=== PATIENT | female | born 1985 | race Caucasian/White ===

== ENCOUNTER 2017-03-05 11:35 | Emergency (ER) | payer OTHER ==
[2017-03-05 11:41] VITALS: BMI 29.8
--- NOTE | 2017-03-05 11:46 | PDOC ---
History of Present Illness - General Chief Complaint: Vaginal Bleeding Stated Complaint: VAGINAL BLEEDING () Time Seen by Provider: 03/05/17 11:45 - History of Present Illness Initial Comments: 03/05/17 11:47 Ms. Coyne is a 31 yo female with significant past medical history of positive home test 02/28/17 who presents to the emergency department after she experienced spotting this morning. She says she took the home test last week after she began experiencing nausea with foods she normally can eat. She reports that she has 4 other children and that she has never experienced the spotting before during and would like it checked out. Additionally, she reports she has had several weeks of midline lower quadrant pain as well as low back pain over this same period. The patient denies chest pain, shortness of breath, headache and dizziness. Denies fever, chills, nausea, vomit, diarrhea and constipation. Denies dysuria, frequency, urgency and hematuria. Allergies: NKDA Past surgical history: Denies Social history: Denies PMD - Callie Pompa Past History - Past Medical History Allergies/Adverse Reactions: Allergies Allergy/AdvReac Type Severity Reaction Status Date / Time No Known Allergies Allergy Verified 03/05/17 11:41 Home Medications: Ambulatory Orders NK [No Known Home Medication] 03/05/17 Other medical history: PATIENT DENIES MEDICAL HX - Suicide/Smoking/Psychosocial Hx Smoking History: Never smoked Hx Alcohol Use: No Drug/Substance Use Hx: No Review of Systems - Review of Systems Comments:: 03/05/17 11:47 GENERAL/CONSTITUTIONAL: No fever or chills. No weakness. HEAD, EYES, EARS, NOSE AND THROAT: No change in vision. No ear pain or discharge. No sore throat. CARDIOVASCULAR: No chest pain or shortness of breath RESPIRATORY: No cough, wheezing, or hemoptysis. GASTROINTESTINAL: +Nausea with "normal" foods, midline lower abdominal pain. No vomiting, diarrhea or constipation. GENITOURINARY: +Spotting this AM. No dysuria, frequency, or change in urination. MUSCULOSKELETAL: +Several months of lower back pain. No joint or muscle swelling or pain. SKIN: No rash NEUROLOGIC: No headache, vertigo, loss of consciousness, or change in strength/ sensation. ENDOCRINE: No increased thirst. No abnormal weight change HEMATOLOGIC/LYMPHATIC: No anemia, easy bleeding, or history of blood clots. ALLERGIC/IMMUNOLOGIC: No hives or skin allergy. *Physical Exam - Vital Signs Last Vital Signs Temp Pulse Resp BP Pulse Ox 98.2 F 100 H 16 120/66 100 03/05/17 11:38 03/05/17 11:38 03/05/17 11:38 03/05/17 11:38 03/05/17 11:38 - Physical Exam Comments: 03/05/17 11:47 GENERAL: Awake, alert, and fully oriented, in no acute distress HEAD: No signs of trauma, normocephalic, atraumatic EYES: PERRLA, EOMI, sclera anicteric, conjunctiva clear ENT: Auricles normal inspection, hearing grossly normal, nares patent, oropharynx clear without exudates. Moist mucosa NECK: Normal ROM, supple, no lymphadenopathy, JVD, or masses LUNGS: No distress, speaks full sentences, clear to auscultation bilaterally HEART: Regular rate and rhythm, normal S1 and S2, no murmurs, rubs or gallops, peripheral pulses normal and equal bilaterally. ABDOMEN: Soft, nontender, normoactive bowel sounds. No guarding, no rebound. No masses EXTREMITIES: Normal inspection, Normal range of motion, no edema. No clubbing or cyanosis. NEUROLOGICAL: Cranial nerves II through XII grossly intact. Normal speech, normal gait, no focal sensorimotor deficits SKIN: Warm, Dry, normal turgor, no rashes or lesions noted. VAGINAL: Scant blood noted with minimal white exudate. Os closed, cervix non- tender. No masses or cysts noted. ED Treatment Course - LABORATORY CBC & Chemistry Diagram: 03/05/17 12:20 03/05/17 12:36 Medical Decision Making - Medical Decision Making 03/05/17 14:58 Ms. Coyne presents for evaluation after spotting this morning during . Unknown gestational age - 7 weeks and 4 days by transvaginal ultrasound. 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 *DC/Admit/Observation/Transfer Diagnosis at time of Disposition: Threatened - Discharge Dispostion Disposition: HOME - Referrals Referrals: Callie Brown MD [Primary Care Provider] - - Patient Instructions Printed Discharge Instructions: DI for Threatened
[2017-03-05 12:36] LABS: BASOPHIL 0.5 % (0-2.0); EOSINOPHIL 0.2 % (0-4.5); MCH 30.4 pg (25.7-33.7); MCHC 33.3 g/dl (32.0-36.0); MEAN CELL VOLUME 91.1 fl (80-96); MEAN PLT VOLUME 7.8 fl (7.5-11.1); NEUTROPHILS 62.5 % (42.8-82.8); PLATELET COUNT 364 K/MM3 (134-434); WHITE BLOOD COUNT 11.5 K/mm3 (4.0-10.0)
[2017-03-05 12:42] LABS: PH,URINE 7.5 (5.0-8.0); URINE APPEARANCE CLEAR; URINE BILIRUBIN NEGATIVE (NEGATIVE); URINE BLOOD TRACE-INTA (NEGATIVE); URINE COLOR LT. YELLOW; URINE GLUCOSE (UA) NEGATIVE (NEGATIVE); URINE KETONE NEGATIVE (NEGATIVE); URINE NITRITE NEGATIVE (NEGATIVE); URINE PROTEIN NEGATIVE (NEGATIVE); URINE UROBILINOGEN 0.2 mg/dL (0.2-1.0)
[2017-03-05 13:04] LABS: ALBUMIN 3.8 g/dl (3.4-5.0); ANION GAP 11 (8-16); BILIRUBIN,TOTAL 0.6 mg/dL (0.2-1.0); CALCIUM 8.6 mg/dL (8.5-10.1); CO2 23 mmol/L (21-32); CREATININE 0.5 mg/dL (0.55-1.02); GLUCOSE,RANDOM 87 mg/dL (74-106); SGOT/AST 8 U/L (15-37); SGPT/ALT 23 U/L (12-78); TOT PROT 7.7 g/dl (6.4-8.2)
[2017-03-05 13:19] LABS: ALK PHOS 64 U/L (45-117)
--- NOTE | 2017-03-05 13:48 | PDOC ---
Attending Attestation - Resident Resident Name: Benoit Gamboa - ED Attending Attestation I have performed the following: I have examined & evaluated the patient, I agree w/resident's findings & plan, Exceptions are as noted - HPI HPI: 03/05/17 13:48 31y F presents with vaginal spotting, +home preg test on 02/28, pt aso enosres some nausea nd some lower abd pain cramping w/o fever/chills, back pain , vomiting,v ag dischage/irritation/dysuria. LMP a month ago, but pt states she has irregular periods. On exam the patient is well apeapring in no distress. abd exam unremarkable without significant tenderness will ck beta will r/o ectopic - Physicial Exam PE: 03/05/17 14:42 see above - Medical Decision Making 03/05/17 14:42 se eabove 03/05/17 16:42 labs reviewed US reviewed, iup @ 7 weeks pt feels improved will dc with principal biostatistician fu return precautions were discussed
[2017-03-05 15:23] VITALS: BP 118/64; PULSE 85; TEMP 97.8
[2017-03-05 17:30] LABS: URINE LEUK ESTERASE 1+ (NEGATIVE)
[2017-03-05 18:08] LABS: URINE BACTERIA FEW /hpf (NEGATIVE)
== END 2017-03-05 15:24 | disposition home or self-care (01) ==
LOC: JER 11:35
DX: O20.0 Threatened abortion (principal); Z3A.01 Less than 8 weeks gestation of pregnancy
CPT/HCPCS: 36415; 76817-TC; 80053; 81003; 81015; 84702; 84703; 85025; 86850; 86900; 86901; 99283-25

== ENCOUNTER 2017-10-12 08:40 | Inpatient (IN) | payer OTHER ==
[2017-10-12] MEDS: DEXTROSE 5%-LACTATED RINGERS 1,000 ML IV SCH ×2 (10:00→15:00)
[2017-10-12 10:28] LABS: BASO % 0.3 % (0-2.0); EOS % 0.3 % (0-4.5); HEMATOCRIT 36.3 % (32.4-45.2); HEMOGLOBIN 12.4 GM/dL (10.7-15.3); LYMPH % 23.3 % (8-40); MCH 30.7 pg (25.7-33.7); MCHC 34.1 g/dl (32.0-36.0); MEAN CELL VOLUME 90.1 fl (80-96); MEAN PLT VOLUME 8.6 fl (7.5-11.1); MONO % 4.6 % (3.8-10.2); NEUT % 71.5 % (42.8-82.8); PLATELET COUNT 253 K/MM3 (134-434); RBC 4.03 M/mm3 (3.60-5.2); RDW 14.1 % (11.6-15.6)
[2017-10-12 10:38] VITALS: BMI 32.2
[2017-10-12 10:40] LABS: INR 0.94 (0.82-1.09); PROTHROMBIN TIME (PATIENT) 10.6 SEC (9.7-13.0)
[2017-10-12] MEDS ORDERED: OXYTOCIN 30 UNITS in 0.9% NS 30 UNIT/500 ML INFUS.BAG IVPB ONE (10:40)
[2017-10-12] MEDS ORDERED: BUTORPHANOL TARTRATE 1 MG/ML VIAL IVPB ONE (10:41)
[2017-10-12] MEDS ORDERED: PROMETHAZINE HCL 25 MG/1 ML VIAL IVPUSH ONE (10:41)
[2017-10-12 10:43] LABS: ACTIVATED PTT 25.1 SECONDS (26.9-34.4)
[2017-10-12] MEDS ORDERED: OXYTOCIN 30 UNITS in 0.9% NS 30 UNIT/500 ML INFUS.BAG IVPB SCH (10:45)
[2017-10-12 11:01] LABS: ANION GAP 10 (8-16); BLOOD UREA NITROGEN 9 mg/dL (7-18); CALCIUM 8.5 mg/dL (8.5-10.1); CHLORIDE 108 mmol/L (98-107); CO2 22 mmol/L (21-32); CREATININE 0.4 mg/dL (0.55-1.02); GLUCOSE,RANDOM 109 mg/dL (74-106); POTASSIUM 3.5 mmol/L (3.5-5.1); SODIUM 140 mmol/L (136-145)
--- NOTE | 2017-10-12 11:11 | HP ---
Past Medical History - Primary Care Physician PCP:: Helen Chery - Admission Chief Complaint: 32 yrs , 39 weeks iup, , onset lP since 6.00AM History of Present Illness: PNC at [address] [place] [address] , wt gain 11 lbs 03/15/18 panel : O Pos, , Rpr nr, Hbsag neg, Hiv neg, , Rubella pos, gc /ct neg 07/04/17 1 hr gtt 148, Quantiferon neg, , rpr nr, gc/ct neg 07/06/17 3 hr gtt 81, 141, 116, 106 09/20/17 h/h 12.3/36.1, GBS neg, Hiv neg early sono marginal previa, lolying placenta , later on resolved sono done by [facility] for growth History Source: Patient, Medical Record Limitations to Obtaining History: No Limitations - Past Medical History PHOTOGRAPHER STILL: No: Migraine Cardiovascular: No: HTN, [place] Pulmonary: No: Asthma Renal/: No: UTI ...: 4 ...Para: 3 (3 09/2003, 07/2005, 12/2007 ) ...Term: 3 ...EDC by Sono: 10/18/17 (03/05/17 --7.4 wks edc 10/18/17 ) Infectious Disease: No: AIDS, STD's, Tuberculosis Psych: No: Addictions, Anxiety, Bipolar, Depression Endocrine: No: Diabetes Mellitus, Hyperthyroidism, Hypothyroidism - Past Surgical History Past Surgical History: Yes: None Hx Myomectomy: No Hx Transabdominal Cerclage: No - Smoking History Smoking history: Never smoked Have you smoked in the past 12 months: No - Alcohol/Substance Use Hx Alcohol Use: No History of Substance Use: reports: None - Social History History of Recent Travel: No Home Medications - Allergies Allergies/Adverse Reactions: Allergies Allergy/AdvReac Type Severity Reaction Status Date / Time No Known Allergies Allergy Verified 08/30/17 17:34 - Home Medications Home Medications: Ambulatory Orders Vit/Iron Fum/Folic AC [ Tablet] 1 each PO DAILY 08/30/17 Physical Exam - Maternity Vital Signs: Vital Signs Temperature 98.4 F 10/12/17 10:00 Pulse Rate 76 10/12/17 10:00 Respiratory Rate 18 10/12/17 10:00 Blood Pressure 100/52 10/12/17 10:00 O2 Sat by Pulse Oximetry (%) Constitutional: Yes: Well Nourished, Mild Distress Eyes: Yes: WNL HENT: Yes: WNL, Normocephalic Neck: Yes: WNL Cardiovascular: Yes: WNL Breast(s): Yes: WNL - Abdominal Exam/OB Number of Fetuses: Single Presentation: Vertex Contractions: Yes Regularity: Irregular Intensity: Mild/Mod Monitor Mode: External Heart Rate (range): 120 Heart Rate Location: [facility] Category: I Accelerations: Uniform Decelerations: None - Vaginal Exam/OB Vaginal Bleediing: No Dilatation (cm): 4 Effacement (%): 70 Amniotic Membrane Status: Intact Presentation: Vertex/Position (exam at 10.00 am) Station: -3 (-3/-2) - Physical Exam Musculoskeletal: Yes: WNL Extremities: Yes: WNL. No: Calf Tenderness Edema: Yes Edema: LLE: 1+, RLE: 1+ ...Motor Strength: WNL Psychiatric: Yes: WNL, Alert - Labs Lab Results: CBC, BMP 10/12/17 10:00 Laboratory Tests 10/12/17 10/12/17 10/12/17 10:00 10:00 10:00 PT with INR 10.60 INR 0.94 PTT (Actin FS) 25.1 L Sodium 140 Potassium 3.5 Chloride 108 H Carbon Dioxide 22 BUN 9 Creatinine 0.4 L Random Glucose 109 H Calcium 8.5 RPR Titer Nonreactive Blood Type Antibody Screen 10/12/17 10:00 PT with INR INR PTT (Actin FS) Sodium Potassium Chloride Carbon Dioxide BUN Creatinine Random Glucose Calcium RPR Titer Blood Type O POSITIVE Antibody Screen Negative Problem List - Problems (1) with 39 completed weeks gestation Code(s): Z3A.39 - 39 WEEKS GESTATION OF (2) Labor established Code(s): UOH2942 - Assessment/Plan 32 yrs , 39 weeks , in labor , gbs neg Plan : trial vaginal delivery,
[2017-10-12] MEDS ORDERED: PROMETHAZINE HCL 25 MG/1 ML VIAL ONE (14:56)
[2017-10-12] MEDS ORDERED: BUTORPHANOL TARTRATE 1 MG/ML VIAL ONE ×2 (14:56)
--- NOTE | 2017-10-12 16:05 | PN ---
Progress Note, Labor Vaginal Exam #1 Labor Exam Date: 10/12/17 Labor Exam Time: 14:50 Heart Rate (range): 140 Dilatation: 4-5 Effacement (%): 80 Amniotic Membrane Status: Ruptured (AROM clear) Presentation: Vertex/Position Station: -3 Remarks: fhr cat-1 uc q 2-3 min Selected Entries 10/12/17 15:00 Temperature 98.0 F Pulse Rate 82 Blood Pressure 107/64 Vaginal Exam #2 Labor Exam Date: 10/12/17 Labor Exam Time: 16:30 Heart Rate (range): 135 Dilatation: 10 Effacement (%): 100 Amniotic Membrane Status: Ruptured Presentation: Vertex/Position Station: +2 Remarks: fhr cat-1 uc - 1-2 min pt pushing Selected Entries 10/12/17 16:00 Temperature 98.2 F Pulse Rate 74 Blood Pressure 100/68
[2017-10-12] MEDS ORDERED: LIDOCAINE HCL 1% PRESERVATIVE FREE - 30ML VIAL ONE (16:31)
[2017-10-12] MEDS ORDERED: OXYTOCIN 20 UNITS in 0.9% NS 20 UNIT/1,000 ML INFUS.BAG IV ONE ×2 (16:31→18:10)
[2017-10-12] MEDS: OXYTOCIN 20 UNITS in 0.9% NS 20 UNIT/1,000 ML INFUS.BAG IV SCH ×2 (16:48→18:30)
[2017-10-12] MEDS ORDERED: WITCH HAZEL 50% (TUCKS) 40 PAD/JAR PAD TP PRN (17:26)
[2017-10-12] MEDS ORDERED: BENZOCAINE 28 GM HEMORRHOIDAL OINTMENT TP PRN (17:26)
[2017-10-12] MEDS ORDERED: BENZOCAINE 20% 57 GM BOTTLE TP PRN (17:26)
[2017-10-12] MEDS ORDERED: METHYLERGONOVINE MALEATE 0.2 MG/1 ML AMP IM PRN (17:26)
[2017-10-12] MEDS ORDERED: oxyCODONE HCL 5 MG TABLET PO PRN (17:26)
[2017-10-12] MEDS ORDERED: BISACODYL 10 MG SUPP.RECT RC PRN (17:26)
[2017-10-12] MEDS: FERROUS SO4 325 MG TABLET (FP) PO SCH (17:34)
--- NOTE | 2017-10-12 17:35 | PN ---
Delivery - Delivery Vaginal Delivery: No Problems, Spontaneous (Baby . shouder delievered without difficulty .boy delivered Vx, Yovana position, immediate oral & nasal suction was done .after placenta delivery ut atonic, bimanual massage was given , prophylactic im Methergine 0.2 mg & IV pitocin continued) Type of Anesthesia: Local Episiotomy/Laceration: Perineal Extension/lac (1st degree perineal laceration sutured with chr catgut #2/0 under local infiltration), 1st degree EBL (cc): 400 (urine output 250 ml janusz color ) Delivery, Single - Stages of Labor Date 1st Stage Initiatied: 10/12/17 Time 1st Stage Initiated: 06:00 Date 2nd Stage Initiated: 10/12/17 Time 2nd Stage Initiated: 16:30 Date of Delivery: 10/12/17 Time of Delivery: 16:46 Time Placenta Delivered: 16:48 Placenta: Yes: Spontaneous, Uterine Exploration - Condition of Bilingual Secretary/Machine Shop Instructor Present: No Infant Gender: Male Weight: 7 lb 13 oz Position: Left, OA Total Hours ROM (Hrs/Mins): 1hr/53mins - 1 Minute Total Score: 9 5 Minutes Total Score: 9 - [place] Feeding Plan Initial Plan: Exclusive throughout hospitalization Remarks - Remarks Remarks: 32 , 39 weeks admitted in labor. Gbs neg . pnc at [address] [place] [address] Pitocin augmentation given stadol 2 mg + phenrgan 25 mg iv for labor analgesia was given Intrapartum course uneventful
[2017-10-12] MEDS: ACETAMINOPHEN 325 MG TABLET (FP) PO PRN (21:33)
[2017-10-12] MEDS: IBUPROFEN 600 MG TABLET (FP) PO PRN (21:34)
--- NOTE | 2017-10-13 07:43 | PN ---
Post Progress Note - Subjective Subjective: c/o cramps Post Day: 1 Type of Delivery: Vital Signs: Vital Signs Temperature 98 F 10/13/17 06:00 Pulse Rate 79 10/13/17 06:00 Respiratory Rate 18 10/13/17 06:00 Blood Pressure 103/67 10/13/17 06:00 O2 Sat by Pulse Oximetry (%) 100 10/12/17 17:45 Breast Exam: Yes: Soft. No: Engorged Uterus: Yes: Fundus Firm, Fundus below umbilicus Lochia: Yes: Rubra Lochia, amount: Moderate Extremities: Yes: Calves non-tender Perineum: Yes: Laceration (healing ) Activity: Ambulating - Labs Labs: CBC WBC 10.0 K/mm3 (4.0-10.0) 10/12/17 10:00 RBC 4.03 M/mm3 (3.60-5.2) 10/12/17 10:00 Hgb 12.4 GM/dL (10.7-15.3) 10/12/17 10:00 Hct 36.3 % (32.4-45.2) 10/12/17 10:00 MCV 90.1 fl (80-96) 10/12/17 10:00 MCH 30.7 pg (25.7-33.7) 10/12/17 10:00 MCHC 34.1 g/dl (32.0-36.0) 10/12/17 10:00 RDW 14.1 % (11.6-15.6) 10/12/17 10:00 Plt Count 253 K/MM3 (134-434) D 10/12/17 10:00 MPV 8.6 fl (7.5-11.1) D 10/12/17 10:00 Neutrophils % 71.5 % (42.8-82.8) 10/12/17 10:00 Lymphocytes % 23.3 % (8-40) D 10/12/17 10:00 Monocytes % 4.6 % (3.8-10.2) 10/12/17 10:00 Eosinophils % 0.3 % (0-4.5) 10/12/17 10:00 Basophils % 0.3 % (0-2.0) 10/12/17 10:00 Nucleated RBC % 0 % (0-0) 10/12/17 10:00 Problem List - Problems (1) with 39 completed weeks gestation Code(s): Z3A.39 - 39 WEEKS GESTATION OF (2) Labor established Code(s): FZU2825 - (3) Vaginal delivery Code(s): O80 - ENCOUNTER FOR FULL-TERM UNCOMPLICATED DELIVERY (4) follow-up Code(s): Z39.2 - ENCOUNTER FOR ROUTINE FOLLOW-UP Assessment/Plan stable pp cbc today discharge tomorrow.
[2017-10-13 08:01] LABS: BASO % 0.2 % (0-2.0); EOS % 0.3 % (0-4.5); HEMATOCRIT 30.9 % (32.4-45.2); HEMOGLOBIN 10.4 GM/dL (10.7-15.3); LYMPH % 25.7 % (8-40); MCH 30.8 pg (25.7-33.7); MCHC 33.7 g/dl (32.0-36.0); MEAN CELL VOLUME 91.4 fl (80-96); MEAN PLT VOLUME 8.5 fl (7.5-11.1); NEUT % 65.8 % (42.8-82.8); PLATELET COUNT 219 K/MM3 (134-434); RBC 3.39 M/mm3 (3.60-5.2); RDW 14.2 % (11.6-15.6); WHITE BLOOD COUNT 15.2 K/mm3 (4.0-10.0)
[2017-10-13] MEDS: FERROUS SO4 325 MG TABLET (FP) PO SCH ×2 (09:19→16:53)
[2017-10-13] MEDS: PRENATAL VITAMINS W/ FOLIC ACID TABLET (FP) PO SCH (09:19)
[2017-10-13] MEDS: ACETAMINOPHEN 325 MG TABLET (FP) PO PRN (09:20)
[2017-10-13] MEDS: IBUPROFEN 600 MG TABLET (FP) PO PRN (09:20)
[2017-10-13] MEDS ORDERED: DIPHTH,PERTUSS(ACELL),TET 0.5 ML DISP.SYRIN IM ONE (10:00)
[2017-10-13] MEDS: DEXTROSE 5%-LACTATED RINGERS 1,000 ML IV SCH (13:55)
[2017-10-13] MEDS ORDERED: SENNOSIDES/DOCUSATE COMBO (SENNA PLUS) TABLET (UD) PO PRN (22:00)
[2017-10-13 22:28] VITALS: TEMP 98.2
--- NOTE | 2017-10-14 05:58 | DS ---
Physical Exam-COMPUTER TAPE LIBRARIAN Vital Signs: Vital Signs Temperature 98.2 F 10/13/17 22:00 Pulse Rate 86 10/13/17 22:00 Respiratory Rate 18 10/13/17 22:00 Blood Pressure 98/68 10/13/17 22:00 O2 Sat by Pulse Oximetry (%) 100 10/12/17 17:45 Constitutional: Yes: Well Nourished Eyes: Yes: WNL HENT: Yes: WNL Neck: Yes: WNL Cardiovascular: Yes: WNL Respiratory: Yes: WNL Gastrointestinal: Yes: WNL ...Rectal Exam: Yes: WNL Renal/: Yes: WNL ....Post : Yes: Uterus firm, Uterus non-tender, Moderate lochia rubra ( 1st degree laceration repair, no c/o perineal soreness) Breast(s): Yes: WNL (BF, breast not engorged) Musculoskeletal: Yes: WNL Extremities: Yes: WNL. No: Calf Tenderness Edema: Yes Integumentary: Yes: WNL Neurological: Yes: WNL ...Motor Strength: WNL Psychiatric: Yes: WNL, Alert, Oriented Labs: CBC, BMP 10/13/17 07:20 10/12/17 10:00 Delivery - Delivery Vaginal Delivery: No Problems, Spontaneous (Baby . shouder delievered without difficulty .boy delivered Vx, Yovana position, immediate oral & nasal suction was done .after placenta delivery ut atonic, bimanual massage was given , prophylactic im Methergine 0.2 mg & IV pitocin continued) Type of Anesthesia: Local Episiotomy/Laceration: Perineal Extension/lac (1st degree perineal laceration sutured with chr catgut #2/0 under local infiltration), 1st degree EBL (cc): 400 (urine output 250 ml janusz color ) Delivery, Single - Stages of Labor Date 1st Stage Initiatied: 10/12/17 Time 1st Stage Initiated: 06:00 Date 2nd Stage Initiated: 10/12/17 Time 2nd Stage Initiated: 16:30 Date of Delivery: 10/12/17 Time of Delivery: 16:46 Time Placenta Delivered: 16:48 Placenta: Yes: Spontaneous, Uterine Exploration - Condition of Infant 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 Gbs neg . pnc at [address] [place] [address] Pitocin augmentation given stadol 2 mg + phenrgan 25 mg iv for labor analgesia was given Intrapartum course uneventful pp course uneventful discharge today Discharge Summary Reason For Visit: LABOR Current Active Problems Labor established (Acute) follow-up (Acute) with 39 completed weeks gestation (Acute) Vaginal delivery (Acute) Condition: Stable - Instructions Diet, Activity, Other Instructions: Post Instructions DIET: Continue good diet high in protein, calcium, and iron rich foods. Drink at least eight (8) glasses of water daily in addition to other fluids. ___ Regular diet MEDICATIONS: Continue vitamins and iron as previously directed. Motrin and Tylenol may be taken for minor discomfort. ACTIVITY: Mild to moderate exercise may be started in two (2) weeks. Take frequent rest periods. Resume normal activity after six (6) week check up. WOUND CARE OF OPERATIVE SITE: Continue use of perineal bottle until vaginal discharge stops. Keep area clean. Shower daily. Keep abdominal wound dry. Report any drainage or redness to physician. Tub baths, tampons and douches are not permitted for [address] Breast feeding & or Bottle feeding BREAST CARE: (For those that are not breast feeding): If engorgement occurs: Wear tight fitting bra. Take Tylenol or Motrin for pain. Apply cold packs (ice in bags to each breast ) FAMILY PLANNING: There are many control alternatives to pursue and they should be discussed at your first office visit. You may resume sexual activity after your six (6) week check up. (Remember, breast feeding is not a contraceptive) NEXT PHYSICIAN APPOINTMENT: Be certain to call for a six (6) week appointment, unless otherwise directed. Call Clinic or got to Emergency Dept if you have any of the following: Heavy vaginal bleeding Painful urination Leg pain Unusual odor noted to vaginal bleeding High fever Red streaking noted on breast Referrals: Helen Chery MD [Staff Physician] - Disposition: HOME - Home Medications Comprehensive Discharge Medication List: Ambulatory Orders Vit/Iron Fum/Folic AC [ Tablet] 1 each PO DAILY 08/30/17 Acetaminophen [Tylenol .Regular Strength -] 650 mg PO Q3H PRN tablet 10/13/17 Benzocaine [Americaine 20% Hensel -] 1 spray TP DAILY PRN bottle 10/13/17 Ibuprofen [Motrin -] 200 mg PO Q4H PRN tablet 10/13/17 Vitamins (Sjr) - 1 tab PO DAILY tablet 10/13/17
[2017-10-14 07:28] VITALS: BP 95/68; PULSE 69
[2017-10-14] MEDS: PRENATAL VITAMINS W/ FOLIC ACID TABLET (FP) PO SCH (09:09)
[2017-10-14] MEDS: FERROUS SO4 325 MG TABLET (FP) PO SCH (09:09)
[2017-10-14] MEDS: IBUPROFEN 600 MG TABLET (FP) PO PRN (09:10)
[2017-10-14] MEDS: ACETAMINOPHEN 325 MG TABLET (FP) PO PRN (09:10)
== END 2017-10-14 11:00 | disposition home or self-care (01) | DRG 560 ==
LOC: JDEL 08:40 → JLDR 09:30 → J3W 20:29
PROVIDERS: ADMIT Obstetrics & Gynecology; ATTEND Obstetrics & Gynecology
PROC: 10E0XZZ Delivery of Products of Conception, External Approach (ICD-10-PCS; principal; 2017-10-12)
PROC: 0HQ9XZZ Repair Perineum Skin, External Approach (ICD-10-PCS; 2017-10-12)
PROC: 0W8NXZZ Division of Female Perineum, External Approach (ICD-10-PCS; 2017-10-12)
DX: O70.0 First degree perineal laceration during delivery (principal); Z3A.39 39 weeks gestation of pregnancy; Z37.0 Single live birth
CPT/HCPCS: 36415; 59409; 80048; 85025; 85610; 85730; 86593; 86850; 86900; 86901; 90715